=== PATIENT | male | born 1955 | race Caucasian/White ===

== ENCOUNTER 2020-01-19 08:54 | Outpatient (CLI) | payer OTHER ==
[~2020-01-19 08:54] MED LIST: CHOL10002 PO; ESOM40CA PO; FEXO1TAB25 PO; IBUP-1623 PO; MOME17SP NAS; MULT-658 PO; PANT20TA2 PO; PANT40TA5 PO
[2020-01-19] MEDS ORDERED: MULT-658 PO (09:28)
[2020-01-19] MEDS ORDERED: FLUT9.9S NS (09:28)
[2020-01-19] MEDS ORDERED: SILD50TA PO (09:28)
[2020-01-19] MEDS ORDERED: NAPR-685 PO (09:28)
== END 2020-01-19 23:59 | disposition home or self-care (01) ==
LOC: STAR 08:54
PROVIDERS: ATTEND Internal Medicine
DX: Z01.818 Encounter for other preprocedural examination (principal); K22.8 Other specified diseases of esophagus
CPT/HCPCS: 93005; U0001

== ENCOUNTER 2020-01-25 08:08 | Day surgery (SDC) | payer OTHER ==
[~2020-01-25] VITALS: Ht 182.9 cm; Wt 85.3 kg
[~2020-01-25 08:08] MED LIST changes: +FLUT9.9S NS; +NAPR-685 PO; +SILD50TA PO
[2020-01-25 08:30] VITALS: BP 140/90
[2020-01-25] MEDS ORDERED: LACTATED RINGERS 1,000 ML IV STA (08:37)
[2020-01-25] MEDS ORDERED: CHLORHEXIDINE 15 ML UDC MM STA (08:37)
[2020-01-25] MEDS ORDERED: CHLORHEXIDINE 15 ML UDC ONE (08:39)
[2020-01-25] MEDS ORDERED: LACTATED RINGERS 1,000 ML IV SCH (09:00)
[2020-01-25] MEDS ORDERED: PROPOFOL 10 MG/ML, 20ML ONE (09:39)
[2020-01-25] MEDS ORDERED: MIDAZOLAM 1 MG/ML, 2ML ONE (09:41)
[2020-01-25] MEDS ORDERED: FENTANYL PF 100 MCG/2ML ONE (09:42)
[2020-01-25] MEDS ORDERED: OXYcodone 5 MG/5 ML ORAL.SOL UDC PO PRN (10:00)
[2020-01-25] MEDS ORDERED: FENTANYL PF 100 MCG/2ML IV PRN (10:00)
[2020-01-25] MEDS ORDERED: ONDANSETRON 2MG/ML, 2ML IVPush PRN (10:00)
== END 2020-01-25 12:00 | disposition home or self-care (01) ==
LOC: OUT 08:08
PROVIDERS: ATTEND Internal Medicine
DX: K22.710 Barrett's esophagus with low grade dysplasia (principal); K44.9 Diaphragmatic hernia without obstruction or gangrene; Z79.899 Other long term (current) drug therapy; Z98.890 Other specified postprocedural states
CPT/HCPCS: 43239; 43499; 88305; J2250; J2704; J3010; J7120

== ENCOUNTER → 2020-07-14 | Outpatient (CLI) | payer OTHER ==
[~2020-07-14] MED LIST changes: -PANT40TA5 PO; +PANT40TA6 PO
== END | disposition home or self-care (01) ==
LOC: STAR 15:06
PROVIDERS: ATTEND Thoracic Surgery (Cardiothoracic Vascular Surgery)
DX: Z01.818 Encounter for other preprocedural examination (principal); K44.9 Diaphragmatic hernia without obstruction or gangrene; Z20.828 Contact with and (suspected) exposure to other viral communicable diseases
CPT/HCPCS: 87635; 93005

== ENCOUNTER 2020-07-19 06:07 | Observation (INO) | payer OTHER ==
[~2020-07-19] VITALS: Ht 182.9 cm; Wt 87.0 kg
[2020-07-19] MEDS ORDERED: CHLORHEXIDINE 15 ML UDC MM STA (06:45)
[2020-07-19] MEDS ORDERED: LACTATED RINGERS 1,000 ML IV SCH (06:45)
[2020-07-19] MEDS ORDERED: CHLORHEXIDINE 15 ML UDC ONE (06:48)
[2020-07-19] MEDS ORDERED: FENTANYL PF 250 MCG/5ML ONE (07:04)
[2020-07-19] MEDS ORDERED: NEOSTIGMINE 1 MG/ML, 10ML ONE (07:30)
[2020-07-19] MEDS ORDERED: PROPOFOL 10 MG/ML, 20ML ONE (07:30)
[2020-07-19] MEDS ORDERED: KETOROLAC 30 MG/1 ML ONE (07:30)
[2020-07-19] MEDS ORDERED: ROCURONIUM 10 MG/ML,10ML ONE (07:30)
[2020-07-19] MEDS ORDERED: GLYCOPYRROLATE 0.2MG/1ML, 5ML ONE (07:30)
[2020-07-19] MEDS ORDERED: ONDANSETRON 2MG/ML, 2ML ONE (07:30)
[2020-07-19] MEDS ORDERED: CEFAZOLIN 1,000 MG ONE (07:30)
[2020-07-19] MEDS ORDERED: SUCCINYLCHOLINE 20 MG/ML, 10ML ONE (07:30)
[2020-07-19] MEDS ORDERED: DEXAMETHASONE 4 MG/ML, 1ML ONE (07:30)
[2020-07-19] MEDS ORDERED: BUPIVACAINE/PF-EPI 0.5% 1:200K INFIL ONE (07:46)
[2020-07-19] MEDS ORDERED: METHOCARBAMOL 1,000 MG in DEXTROSE 5% 100 ML IV PRN (08:30)
[2020-07-19] MEDS ORDERED: ONDANSETRON 2MG/ML, 2ML IVPush PRN ×2 (08:30→09:30)
[2020-07-19] MEDS ORDERED: PROMETHAZINE 25 MG/ML, 1ML IVPush PRN (08:30)
[2020-07-19] MEDS ORDERED: hydrALAzine 20 MG/ML, 1ML IV PRN ×2 (08:30→09:30)
[2020-07-19] MEDS ORDERED: LABETALOL 5MG/ML, 20ML IV PRN (08:30)
[2020-07-19] MEDS ORDERED: LORazepam 2 MG/ML, 1ML IVPush PRN (08:30)
[2020-07-19] MEDS ORDERED: ACETAMINOPHEN 325 MG TABLET PO PRN (08:30)
[2020-07-19] MEDS ORDERED: OXYcodone 5 MG/5 ML ORAL.SOL UDC PO PRN (08:30)
[2020-07-19] MEDS ORDERED: EPHEDRINE 50 MG/ML, 1ML IVPush PRN (08:30)
[2020-07-19] MEDS ORDERED: MEPERIDINE/PF 25MG/0.5ML IVPush PRN (08:30)
[2020-07-19] MEDS ORDERED: FENTANYL PF 100 MCG/2ML ONE ×2 (08:54→09:22)
[2020-07-19] MEDS ORDERED: OXYcodone 5 MG/5 ML ORAL.SOL UDC ONE (09:22)
[2020-07-19] MEDS: FENTANYL PF 100 MCG/2ML IV PRN ×3 (09:25→09:35)
[2020-07-19] MEDS ORDERED: LORazepam 2 MG/ML, 1ML IV PRN (09:30)
[2020-07-19] MEDS ORDERED: HYDROcodone/APAP 7.5-325MG/15ML UDC PO PRN (09:30)
[2020-07-19] MEDS ORDERED: ENALAPRILAT 1.25 MG/ML, 2ML IV PRN (09:30)
[2020-07-19] MEDS ORDERED: morphine SULFATE 10 MG/ML, 1ML IV PRN (09:30)
[2020-07-19] MEDS ORDERED: HYDROmorphone 1 MG/ML, 1ML INJ ONE ×2 (09:42→10:26)
[2020-07-19] MEDS: HYDROmorphone 1 MG/ML, 1ML INJ IVPush PRN ×2 (09:50→10:00)
[2020-07-19] MEDS ORDERED: ACETAMINOPHEN 650 MG/20.3 ML UDC ONE (09:59)
[2020-07-19] MEDS ORDERED: PLEASE ENTER ALLERGIES MC SCH (10:00)
[2020-07-19] MEDS ORDERED: DIPHENHYDRAMINE 25 MG CAPSULE PO PRN (10:00)
[2020-07-19] MEDS ORDERED: FAMOTIDINE 20 MG/2 ML ONE (11:12)
[2020-07-19] MEDS: FAMOTIDINE 20 MG/2 ML IV SCH (11:21)
[2020-07-19] MEDS: LACTATED RINGERS 1,000 ML IV SCH ×2 (11:22→17:30)
[2020-07-19] MEDS ORDERED: HYDR-3567 PO (17:16)
[2020-07-19 19:36] VITALS: BP 116/71
[2020-07-19] MEDS: KETOROLAC 30 MG/1 ML IV PRN (19:52)
[2020-07-19 23:58] VITALS: BP 125/80
[2020-07-20] MEDS: FAMOTIDINE 20 MG/2 ML IV SCH (00:18)
[2020-07-20] MEDS: LACTATED RINGERS 1,000 ML IV SCH ×2 (01:30→09:30)
[2020-07-20] MEDS: KETOROLAC 30 MG/1 ML IV PRN (04:09)
[2020-07-20 04:11] VITALS: BP 121/72
[2020-07-20 07:45] VITALS: BP 130/88
[2020-07-20] MEDS ORDERED: ENOXAPARIN 40 MG/0.4 ML SQ SCH (09:00)
[2020-07-20 10:10] VITALS: BP 133/85
== END 2020-07-20 10:48 | disposition home or self-care (01) ==
LOC: OUT 06:07 → ORIP 09:20 → 3WST 10:54 → 2NW 13:17 → DCLOUNGE 07-20 10:30
PROVIDERS: ADMIT Thoracic Surgery (Cardiothoracic Vascular Surgery); ATTEND Thoracic Surgery (Cardiothoracic Vascular Surgery)
DX: K44.9 Diaphragmatic hernia without obstruction or gangrene (principal); K21.00 Gastro-esophageal reflux disease with esophagitis, without bleeding; K22.70 Barrett's esophagus without dysplasia; Z87.891 Personal history of nicotine dependence; Z79.899 Other long term (current) drug therapy
CPT/HCPCS: 43282; 96361; 96374; 96375; 96376; C1781; G0378; J0330; J0690; J1100; J1170; J1885; J2405; J2704; J2710; J3010; J7120